=== PATIENT | male | born 1965 | race Hispanic/Latino ===

== ENCOUNTER 2024-03-16 10:09 | Outpatient (CLI) | payer MEDICARE | END 2024-03-16 10:10 | disposition home or self-care (01) | LOC: CSHCT 10:09 | PROVIDERS: ATTEND Student in an Organized Health Care Education/Training Program | DX: Z12.2 Encounter for screening for malignant neoplasm of respiratory organs (principal); Z87.891 Personal history of nicotine dependence; J43.2 Centrilobular emphysema; J43.8 Other emphysema | CPT/HCPCS: 71271 ==